=== PATIENT | female | born 1965 | race Caucasian/White ===

== ENCOUNTER → 2017-10-19 | Outpatient (REF) | payer OTHER ==
[2017-10-20 13:12] LABS: CHLAMYDIA DNA AMPLIFICATION NEGATIVE (NEGATIVE); GC DNA AMPLIFICATION NEGATIVE (NEGATIVE)
== END ==
LOC: M SFHCLERA 18:10
DX: N30.01 Acute cystitis with hematuria (principal)

== ENCOUNTER 2020-12-17 16:09 | Emergency (ER) | payer OTHER ==
[~2020-12-17] VITALS: Ht 172.7 cm; Wt 109.3 kg
[2020-12-17] MEDS ORDERED: AZIT500T5 (16:32)
[2020-12-17] MEDS ORDERED: PRED20TA (16:32)
[2020-12-17] MEDS ORDERED: ALBU8.5H (16:32)
[2020-12-17] MEDS ORDERED: BENZ-18 (16:32)
--- NOTE | 2020-12-17 19:09 | REP ---
INDICATION: cough, sob COMPARISON: 01/25/2013. TECHNIQUE: PA/Lateral FINDINGS: Lungs: Clear, no infiltrate. Heart: Normal in size. Mediastinum: Mediastinal silhouette unremarkable. Pleural angles: Unremarkable.. Bones and soft tissues: Unremarkable. IMPRESSION: No acute pulmonary disease. <Electronically signed by Frandy Foster > 12/17/20 2090
[2020-12-17 20:21] LABS: BLOOD UREA NITROGEN 13 MG/DL (7-18); CALCIUM LEVEL 9.6 MG/DL (8.5-10.1); CARBON DIOXIDE LEVEL 25 MEQ/L (21-32); CHLORIDE LEVEL 105 MEQ/L (98-107); CK-MB VALUE MASS 1.2 NG/ML (<3.6); CPK CREATINE PHOSPHOKINASE 127 U/L (26-192); CREATININE FOR GFR 0.82 MG/DL (0.55-1.30); GLOMERULAR FILTRATION RATE > 60.0 (>51); GLUCOSE, FASTING 107 MG/DL (70-100); MB/CK RELATIVE INDEX 0.94 (< OR =4); NT-PRO BNP 191 PG/ML (<125); POTASSIUM SERUM 3.8 MEQ/L (3.5-5.1); SODIUM LEVEL 141 MEQ/L (136-145); TROPONIN I < 0.02 NG/ML (< 0.10)
[2020-12-17 20:29] LABS: BASO % 0.2 % (0.0-1.0); EOS % 0.2 % (0.0-3.0); HEMATOCRIT 36.2 % (36.0-47.0); HEMOGLOBIN 11.6 g/dl (12.0-15.5); LYMPH # 2.4 10^3/uL (1.5-5.0); LYMPH % 19.3 % (24.0-44.0); MEAN CORPUSCULAR HEMOGLOBIN 24.3 pg (27.0-33.0); MEAN CORPUSCULAR VOLUME 75.9 fl (80.0-96.0); MONO # 0.9 10^3/uL (0.0-0.8); MONO % 6.8 % (2.0-8.0); NEUTROPHILS # 9.2 10^3/uL (1.5-8.5); NEUTROPHILS % 72.9 % (36.0-66.0); PLATELET COUNT, AUTOMATED 371 10^3/uL (150-450); RED BLOOD COUNT 4.77 10^6/uL (4.00-5.40); WHITE BLOOD COUNT 12.6 10^3/uL (4.0-10.0)
[2020-12-17 20:55] LABS: RSV AMPLIFICATION NEGATIVE (NEGATIVE)
[2020-12-17] MEDS ORDERED: DOXY1CAP62 PO (20:58)
[2020-12-17] MEDS ORDERED: DOXYCYCLINE HYCLATE 100MG TABLET PO ONE (21:10)
[2020-12-17 21:23] VITALS: BP 138/99
--- NOTE | 2020-12-18 05:36 | ECGEPIP ---
[facility] - ED Test Date: 2020-12-17 Pat Name: BARNEY MCLAIN Department: Room: - Gender: Female [employer]ainer: SB : [id number] Requested By: TIARA Houston PA-C Order Number: [id number] Reading MD: Talon Arauz Measurements Intervals [place] Rate: 65 P: 45 MO: 148 QRS: -10 QRSD: 98 T: 90 QT: 388 QTc: 403 Interpretive Statements Normal sinus rhythm Moderate voltage criteria for LVH, may be normal variant ( R in aVL , Adi product ) SIMILAR TO 07/30/14 Electronically Signed on 12-18-2020 5:35:56 EDT by Talon Arauz
== END 2020-12-17 21:25 | disposition home or self-care (01) ==
LOC: M ED 16:09
DX: J20.9 Acute bronchitis, unspecified (principal); F17.200 Nicotine dependence, unspecified, uncomplicated; I10 Essential (primary) hypertension; J45.909 Unspecified asthma, uncomplicated; Z88.7 Allergy status to serum and vaccine; Z98.84 Bariatric surgery status

== ENCOUNTER → 2022-03-18 | Outpatient (CLI) | payer OTHER ==
[~2022-03-18] MED LIST: ALBU8.5H; AZIT500T5; BENZ-18; DOXY-443 PO; PRED20TA
== END ==
LOC: M WHC 14:51
PROVIDERS: ATTEND Family Medicine
DX: Z12.31 Encounter for screening mammogram for malignant neoplasm of breast (principal)

== ENCOUNTER → 2023-01-31 | Outpatient (CLI) | payer OTHER ==
[2023-01-31 11:42] LABS: BASO # 0.1 10^3/uL (0.0-0.2); BASO % 0.7 % (0.0-1.0); EOS # 0.3 10^3/uL (0.0-0.5); EOS % 3.4 % (0.0-3.0); HEMATOCRIT 37.4 % (36.0-47.0); HEMOGLOBIN 11.7 g/dl (12.0-15.5); LYMPH % 23.2 % (24.0-44.0); MEAN CORPUSCULAR HEMOGLOBIN 25.6 pg (27.0-33.0); MEAN CORPUSCULAR HGB CONC 31.3 g/dl (32.0-36.5); MEAN CORPUSCULAR VOLUME 81.8 fl (80.0-96.0); MONO # 0.8 10^3/uL (0.0-0.8); NEUTROPHILS # 5.5 10^3/uL (1.5-8.5); NEUTROPHILS % 63.5 % (36.0-66.0); PLATELET COUNT, AUTOMATED 270 10^3/uL (150-450); RED BLOOD COUNT 4.57 10^6/uL (4.00-5.40); WHITE BLOOD COUNT 8.7 10^3/uL (4.0-10.0)
[2023-01-31 12:12] LABS: IRON (FE) 31 UG/DL (50-170)
[2023-01-31 12:13] LABS: PERCENT SATURATION 7.3 % (13.2-45.0); TOTAL IRON BINDING CAPACITY 425 UG/DL (250-425)
[2023-01-31 12:21] LABS: ALBUMIN 3.8 G/DL (3.2-5.2); ALKALINE PHOSPHATASE 168 U/L (46-116); ALT/SGPT 66 U/L (7.0-40); AST/SGOT 51 U/L (<34); BILIRUBIN,TOTAL 0.6 MG/DL (0.3-1.2); BLOOD UREA NITROGEN 8 MG/DL (9-23); CALCIUM LEVEL 9.1 MG/DL (8.5-10.1); CARBON DIOXIDE LEVEL 27 MMOL/L (20-31); CHLORIDE LEVEL 104 MMOL/L (98-107); CHOLESTEROL LEVEL 170 MG/DL (<200); CREATININE FOR GFR 0.66 MG/DL (0.55-1.30); FERRITIN 4.6 NG/ML (7.3-270.7); FREE T4 0.88 NG/DL (0.89-1.76); GLOMERULAR FILTRATION RATE > 60.0 (>51); GLUCOSE, FASTING 91 MG/DL (60-100); MAGNESIUM LEVEL 2.2 MG/DL (1.8-2.4); SODIUM LEVEL 141 MMOL/L (136-145); THYROID STIMULATING HORMONE 1.659 uIU/ML (0.55-4.78); TOTAL 25(OH) VITAMIN D 13.8 NG/ML (20.0-100.0); TOTAL PROTEIN 6.4 G/DL (5.7-8.2); TRIGLYCERIDES LEVEL 102 MG/DL (<150); VITAMIN B12 LEVEL 475 PG/ML (211-911)
[2023-01-31 12:43] LABS: CHOLESTEROL RISK RATIO 2.87 (<5); HDL CHOLESTEROL 59.1 MG/DL (>40); LDL CHOLESTEROL 90.5 MG/DL (<100); NON-HDL-C 110.9 MG/DL
[2023-01-31 12:44] LABS: HEMOGLOBIN A1c 5.3 % (4.0-6.0)
== END ==
LOC: M PLALAB 08:21
PROVIDERS: ATTEND Nurse Practitioner Adult Health
DX: E03.9 Hypothyroidism, unspecified (principal); I10 Essential (primary) hypertension; Z98.84 Bariatric surgery status

== ENCOUNTER 2023-02-20 07:58 | Outpatient (CLI) | payer OTHER ==
[~2023-02-20] VITALS: Ht 171.4 cm; Wt 110.0 kg
[2023-02-20 08:30] VITALS: BP 128/84; O2SAT 98
[2023-02-20] MEDS ORDERED: FERRIC CARBOXYMALTOSE INJ 750 MG in NS 250 ML (>50kg) IV ONE ×3 (08:50)
[2023-02-20 10:10] VITALS: BP 159/91; O2SAT 97
== END 2023-02-20 10:10 ==
LOC: M INFU 07:58
PROVIDERS: ATTEND Nurse Practitioner Adult Health
DX: D50.9 Iron deficiency anemia, unspecified (principal); Z88.7 Allergy status to serum and vaccine; Z88.3 Allergy status to other anti-infective agents
CPT/HCPCS: 96365; J1439

== ENCOUNTER 2023-02-27 08:05 | Outpatient (CLI) | payer OTHER ==
[~2023-02-27] VITALS: Ht 172.7 cm; Wt 108.2 kg
[2023-02-27 08:05] VITALS: BP 168/85; O2SAT 100
[2023-02-27] MEDS ORDERED: FERRIC CARBOXYMALTOSE INJ 750 MG in NS 250 ML (>50kg) IV ONE ×3 (08:25)
[2023-02-27 09:45] VITALS: BP 144/83; O2SAT 96
== END 2023-02-27 09:45 ==
LOC: M INFU 08:05
PROVIDERS: ATTEND Nurse Practitioner Adult Health
DX: D50.9 Iron deficiency anemia, unspecified (principal); Z91.048 Other nonmedicinal substance allergy status; Z88.7 Allergy status to serum and vaccine
CPT/HCPCS: 96365; J1439

== ENCOUNTER → 2023-04-20 | Outpatient (CLI) | payer OTHER | LOC: M WHC 07:44 | PROVIDERS: ATTEND Nurse Practitioner Adult Health | DX: D48.61 Neoplasm of uncertain behavior of right breast (principal); Z97.8 Presence of other specified devices | CPT/HCPCS: 76642; 77066; G0279 ==

== ENCOUNTER → 2023-05-15 | Outpatient (CLI) | payer OTHER ==
[2023-05-15 17:01] LABS: BASO # 0.1 10^3/uL (0.0-0.2); BASO % 0.7 % (0.0-1.0); EOS # 0.2 10^3/uL (0.0-0.5); EOS % 2.7 % (0.0-3.0); HEMATOCRIT 44.2 % (36.0-47.0); HEMOGLOBIN 15.2 g/dl (12.0-15.5); LYMPH # 2.9 10^3/uL (1.5-5.0); LYMPH % 33.8 % (24.0-44.0); MEAN CORPUSCULAR HEMOGLOBIN 31.3 pg (27.0-33.0); MEAN CORPUSCULAR HGB CONC 34.4 g/dl (32.0-36.5); MEAN CORPUSCULAR VOLUME 91.1 fl (80.0-96.0); MONO # 0.8 10^3/uL (0.0-0.8); MONO % 9.2 % (2.0-8.0); NEUTROPHILS # 4.5 10^3/uL (1.5-8.5); NEUTROPHILS % 53.5 % (36.0-66.0); PLATELET COUNT, AUTOMATED 260 10^3/uL (150-450); RED BLOOD COUNT 4.85 10^6/uL (4.00-5.40); WHITE BLOOD COUNT 8.5 10^3/uL (4.0-10.0)
[2023-05-15 17:12] LABS: THYROID STIMULATING HORMONE 1.562 uIU/ML (0.55-4.78)
[2023-05-15 17:13] LABS: FERRITIN 70.9 NG/ML (7.3-270.7)
[2023-05-15 17:14] LABS: TOTAL 25(OH) VITAMIN D 36.6 NG/ML (20.0-100.0)
[2023-05-15 17:15] LABS: FOLATE 16.11 NG/ML (>5.4); FREE T4 0.95 NG/DL (0.89-1.76)
== END ==
LOC: M PLALAB 13:44
PROVIDERS: ATTEND Nurse Practitioner Adult Health
DX: E03.9 Hypothyroidism, unspecified (principal); D50.9 Iron deficiency anemia, unspecified; E55.9 Vitamin D deficiency, unspecified

== ENCOUNTER → 2023-06-16 | Outpatient (CLI) | payer OTHER ==
[2023-06-16 12:47] LABS: LIPASE 28 U/L (12-53)
[2023-06-16 12:48] LABS: AMYLASE 38 U/L (30-118)
[2023-06-16 12:49] LABS: ALBUMIN 3.9 G/DL (3.2-5.2); ALKALINE PHOSPHATASE 149 U/L (46-116); ALT/SGPT 25 U/L (7.0-40); AST/SGOT 19 U/L (<34); BILIRUBIN,DIRECT 0.3 MG/DL (<0.4); BILIRUBIN,TOTAL 0.7 MG/DL (0.3-1.2); TOTAL PROTEIN 6.1 G/DL (5.7-8.2)
[2023-06-16 13:18] LABS: HEPATITIS C VIRUS ABY INDEX 0.03 INDEX (<0.8)
[2023-06-16 13:19] LABS: HEPATITIS B CORE ANTIBODY IGM NEGATIVE (NEGATIVE)
== END ==
LOC: M PLALAB 08:07
PROVIDERS: ATTEND Nurse Practitioner Adult Health
DX: R94.5 Abnormal results of liver function studies (principal)

== ENCOUNTER → 2023-07-11 | Outpatient (CLI) | payer OTHER ==
[~2023-07-11] MED LIST changes: +READI-CAT 2 ONE
== END ==
LOC: M PLAIMG 07:07
PROVIDERS: ATTEND Nurse Practitioner Adult Health
DX: R68.81 Early satiety (principal); D37.4 Neoplasm of uncertain behavior of colon

== ENCOUNTER → 2023-08-07 | Outpatient (CLI) | payer OTHER ==
[~2023-08-07] MED LIST changes: +DOXY-323 PO; -DOXY-443 PO; +ERGO500029 PO; +LOSA25TA13 PO; -READI-CAT 2 ONE; +THERTAB52 PO
== END ==
LOC: M PLARAD 14:42
PROVIDERS: ATTEND Internal Medicine Medical Oncology
DX: C18.7 Malignant neoplasm of sigmoid colon (principal)
CPT/HCPCS: 78815; A9552

== ENCOUNTER 2023-08-18 11:01 | Day surgery (SDC) | payer OTHER ==
[~2023-08-18] VITALS: Ht 172.7 cm; Wt 103.9 kg
[~2023-08-18 11:01] MED LIST changes: +NS 1,000 ML IV ONE
[2023-08-18] MEDS ORDERED: propofoL 200 MG/20 ML VIAL As Ordered ONE (13:19)
[2023-08-18] MEDS ORDERED: LIDOCAINE 2% 100MG/5ML SDV (FOR ANES.) As Ordered ONE (13:19)
[2023-08-18 13:24] VITALS: TEMP 97
[2023-08-18 13:46] VITALS: BP 123/65; O2SAT 98
== END 2023-08-18 13:48 | disposition home or self-care (01) ==
LOC: M OPP 11:01
PROVIDERS: ATTEND Surgery
DX: C18.7 Malignant neoplasm of sigmoid colon (principal); K56.691 Other complete intestinal obstruction; I10 Essential (primary) hypertension; Z85.828 Personal history of other malignant neoplasm of skin; Z79.899 Other long term (current) drug therapy; Z90.49 Acquired absence of other specified parts of digestive tract; Z87.891 Personal history of nicotine dependence; Z88.7 Allergy status to serum and vaccine; Z98.84 Bariatric surgery status

== ENCOUNTER 2023-08-31 07:30 | Inpatient (IN) | payer OTHER ==
[~2023-08-31] VITALS: Ht 172.7 cm; Wt 104.3 kg
[2023-08-31] VITALS (8 sets, daily range): BP systolic 107–128; BP diastolic 58–79; TEMP 97–97.9; O2SAT 94–97
[2023-08-31] MEDS: LR 1,000 ML IV SCH (07:20)
[~2023-08-31 07:30] MED LIST changes: +LIDOCAINE 2% 100MG/5ML SDV (FOR ANES.) As Ordered ONE; +MIDAZOLAM INJ 2MG/2ML VIAL As Ordered ONE; -NS 1,000 ML IV ONE; +ONDANSETRON 4MG 2ML VIAL As Ordered ONE; +ROCURONIUM BROMIDE 50MG/5ML VIAL As Ordered ONE; +SUGAMMADEX SODIUM 500 MG/5 ML VIAL (BRIDION) As Ordered ONE; +fentaNYL 250 MCG/5 ML INJECTION As Ordered ONE; +propofoL 200 MG/20 ML VIAL As Ordered ONE
[2023-08-31] MEDS: ceFAZolin SOD 2 GM in IV 1 EA IV ONE (07:42)
[2023-08-31] MEDS ORDERED: PHENYLephrine 500MCG 5ML (100MCG/ML) SYRINGE As Ordered ONE (07:44)
[2023-08-31] MEDS: metroNIDAZOLE 500 MG in IV 1 EA IV ONE (07:48)
[2023-08-31] MEDS ORDERED: ACETAMINOPHEN 1000MG 100ML IV BAG As Ordered ONE (07:55)
[2023-08-31] MEDS ORDERED: dexmedeTOMIDine (4MCG/ML)200MCG/50ML BTL (PRECEDEX) As Ordered ONE (08:20)
[2023-08-31] MEDS ORDERED: HYDROmorphone HCL 2MG/ML 1ML VIAL As Ordered ONE (09:23)
[2023-08-31] MEDS ORDERED: oxyCODONE 5MG TAB PO PRN (10:40)
[2023-08-31] MEDS ORDERED: ONDANSETRON 4MG 2ML VIAL IV PRN ×2 (10:40→12:15)
[2023-08-31] MEDS ORDERED: fentaNYL 100 MCG/2 ML INJECTION IV PRN (10:40)
[2023-08-31] MEDS: NS 1,000 ML IV SCH (11:31)
[2023-08-31] MEDS: HYDROMORPHONE HCL 0.5 MG/ 0.5 ML SYRINGE IV PRN (11:31)
[2023-08-31] MEDS ORDERED: NORCO, ANEXSIA 5/325MG TABLET (HYDROcodone/ACETAMINOPHEN) PO PRN (12:15)
[2023-08-31] MEDS ORDERED: MORPHINE 2 MG/ML 1ML VIAL IV PRN (12:15)
[2023-08-31] MEDS: PIPERACILLIN/TAZOBACTAM SOD 3.375 GM in D5W MINI-BAG PLUS 50 ML IV SCH (13:40)
[2023-08-31] MEDS: NORCO, ANEXSIA 5/325MG TABLET (HYDROcodone/ACETAMINOPHEN) PO PRN (14:15)
[2023-08-31] MEDS: KETOROLAC 30 MG/ML 1ML VIAL IV PRN (17:01)
[2023-08-31] MEDS: SENOKOT S TAB PO SCH (19:59)
[2023-09-01 01:00] VITALS: BP 127/72; TEMP 97.2; O2SAT 96
[2023-09-01 05:00] VITALS: BP 125/71; TEMP 97; O2SAT 94
[2023-09-01 07:29] LABS: HEMATOCRIT 37.2 % (36.0-47.0); HEMOGLOBIN 12.8 g/dl (12.0-15.5); MEAN CORPUSCULAR HEMOGLOBIN 33.3 pg (27.0-33.0); MEAN CORPUSCULAR HGB CONC 34.4 g/dl (32.0-36.5); MEAN CORPUSCULAR VOLUME 96.9 fl (80.0-96.0); PLATELET COUNT, AUTOMATED 184 10^3/uL (150-450); RED BLOOD COUNT 3.84 10^6/uL (4.00-5.40); WHITE BLOOD COUNT 10.1 10^3/uL (4.0-10.0)
[2023-09-01 07:56] LABS: BLOOD UREA NITROGEN 10 MG/DL (9-23); CALCIUM LEVEL 8.5 MG/DL (8.5-10.1); CARBON DIOXIDE LEVEL 28 MMOL/L (20-31); CHLORIDE LEVEL 108 MMOL/L (98-107); CREATININE FOR GFR 0.65 MG/DL (0.55-1.30); GLOMERULAR FILTRATION RATE > 60.0 (>51); GLUCOSE, FASTING 89 MG/DL (60-100); POTASSIUM SERUM 4.1 MMOL/L (3.5-5.1); SODIUM LEVEL 142 MMOL/L (136-145)
[2023-09-01 09:03] VITALS: BP 131/79; TEMP 97.3; O2SAT 97
[2023-09-01] MEDS: LOSARTAN 25 MG TAB PO SCH (09:05)
[2023-09-01] MEDS: ENOXAPARIN 40MG/0.4ML SYRINGE (J1650 PER 10MG) SC SCH (09:07)
[2023-09-01 14:00] VITALS: BP 131/80; TEMP 97.7; O2SAT 97
[2023-09-01 21:18] VITALS: BP 139/81; TEMP 97.7; O2SAT 97
[2023-09-02 05:28] VITALS: BP 149/93; TEMP 97; O2SAT 94
[2023-09-02 06:46] LABS: HEMOGLOBIN 12.9 g/dl (12.0-15.5); MEAN CORPUSCULAR HEMOGLOBIN 33.6 pg (27.0-33.0); MEAN CORPUSCULAR HGB CONC 34.9 g/dl (32.0-36.5); MEAN CORPUSCULAR VOLUME 96.4 fl (80.0-96.0); PLATELET COUNT, AUTOMATED 168 10^3/uL (150-450); RED BLOOD COUNT 3.84 10^6/uL (4.00-5.40); WHITE BLOOD COUNT 8.9 10^3/uL (4.0-10.0)
[2023-09-02 07:05] LABS: BLOOD UREA NITROGEN 5 MG/DL (9-23); CALCIUM LEVEL 8.7 MG/DL (8.5-10.1); CARBON DIOXIDE LEVEL 29 MMOL/L (20-31); CHLORIDE LEVEL 110 MMOL/L (98-107); CREATININE FOR GFR 0.57 MG/DL (0.55-1.30); GLOMERULAR FILTRATION RATE > 60.0 (>51); GLUCOSE, FASTING 96 MG/DL (60-100); POTASSIUM SERUM 3.4 MMOL/L (3.5-5.1); SODIUM LEVEL 143 MMOL/L (136-145)
[2023-09-02 08:34] VITALS: BP 139/91
[2023-09-02] MEDS ORDERED: TRAM50TA2 PO (12:16)
== END 2023-09-02 13:00 | disposition home or self-care (01) | DRG 330 ==
LOC: M MS5PR 10:53
PROVIDERS: ADMIT Surgery; ATTEND Surgery
PROC: 8E0W4CZ Robotic Assisted Procedure of Trunk Region, Percutaneous Endoscopic Approach (ICD-10-PCS; 2023-08-31)
PROC: 0DTN4ZZ Resection of Sigmoid Colon, Percutaneous Endoscopic Approach (ICD-10-PCS; principal; 2023-08-31 07:30)
DX: C18.7 Malignant neoplasm of sigmoid colon (principal); C77.2 Secondary and unspecified malignant neoplasm of intra-abdominal lymph nodes; Z88.7 Allergy status to serum and vaccine; Z88.8 Allergy status to other drugs, medicaments and biological substances

== ENCOUNTER → 2023-09-27 | Outpatient (CLI) | payer OTHER ==
[~2023-09-27] VITALS: Ht 172.7 cm; Wt 105.0 kg
[~2023-09-27] MED LIST changes: +LIDOCAINE 1% MDV 20ML VIAL As Ordered ONE; -LIDOCAINE 2% 100MG/5ML SDV (FOR ANES.) As Ordered ONE; +LIDOCAINE W/EPINEPHRINE 1% 20ML VIAL As Ordered ONE; -ONDANSETRON 4MG 2ML VIAL As Ordered ONE; -ROCURONIUM BROMIDE 50MG/5ML VIAL As Ordered ONE; -SUGAMMADEX SODIUM 500 MG/5 ML VIAL (BRIDION) As Ordered ONE; +TRAM50TA2 PO; +ceFAZolin 2 GM/D5W 50 ML IV BAG As Ordered ONE; +ceFAZolin SOD 2 GM in IV 1 EA IV ONE; +fentaNYL 100 MCG/2 ML INJECTION As Ordered ONE; -fentaNYL 250 MCG/5 ML INJECTION As Ordered ONE; -propofoL 200 MG/20 ML VIAL As Ordered ONE
[2023-09-27 07:25] VITALS: TEMP 96.8
[2023-09-27 09:43] VITALS: BP 163/94; O2SAT 95
== END ==
LOC: M IRPRO 06:48
PROVIDERS: ATTEND Specialist
DX: C18.9 Malignant neoplasm of colon, unspecified (principal)
CPT/HCPCS: 36561; 99152; 99153; C1769; J0690; J2250; J3010

== ENCOUNTER → 2023-10-10 | Outpatient (CLI) | payer OTHER ==
[~2023-10-10] MED LIST changes: -LIDOCAINE 1% MDV 20ML VIAL As Ordered ONE; -LIDOCAINE W/EPINEPHRINE 1% 20ML VIAL As Ordered ONE; -MIDAZOLAM INJ 2MG/2ML VIAL As Ordered ONE; -ceFAZolin 2 GM/D5W 50 ML IV BAG As Ordered ONE; -ceFAZolin SOD 2 GM in IV 1 EA IV ONE; -fentaNYL 100 MCG/2 ML INJECTION As Ordered ONE
== END ==
LOC: EEVIPCON 09-13 10:00 → M RAD 08:48
PROVIDERS: ATTEND Specialist
DX: C18.9 Malignant neoplasm of colon, unspecified (principal)
CPT/HCPCS: 78306; A9503

== ENCOUNTER → 2023-11-13 | Outpatient (CLI) | payer OTHER ==
[~2023-11-13] MED LIST changes: +LIDO30CR18 TOP; +ONDA-84 PO; +PRED50TA PO; +PROC10TA5 PO
== END ==
LOC: M WHC 12:30
PROVIDERS: ATTEND Nurse Practitioner Adult Health
DX: N64.89 Other specified disorders of breast (principal); N63.22 Unspecified lump in the left breast, upper inner quadrant

== ENCOUNTER → 2023-12-05 | Outpatient (REF) | payer OTHER ==
[~2023-12-05] MED LIST changes: +AZIT-12 PO; +BENZ200C70 PO; +DIPH-435 PO; +POTA-151 PO; +PRED20TA PO; +RIZA10TA58 PO
[2023-12-05 15:32] LABS: IRON (FE) 116 UG/DL (50-170); PERCENT SATURATION 34.3 % (13.2-45.0); TOTAL IRON BINDING CAPACITY 338 UG/DL (250-425)
[2023-12-05 15:37] LABS: FREE T4 1.21 NG/DL (0.89-1.76)
[2023-12-05 15:38] LABS: THYROID STIMULATING HORMONE 2.248 uIU/ML (0.55-4.78)
[2023-12-05 15:39] LABS: FOLATE > 24.0 NG/ML (>5.4)
[2023-12-05 15:41] LABS: VITAMIN B12 LEVEL 1767 PG/ML (211-911)
== END ==
LOC: M LAB REF 14:47
PROVIDERS: ATTEND Nurse Practitioner Adult Health
DX: E55.9 Vitamin D deficiency, unspecified (principal); E03.9 Hypothyroidism, unspecified; D50.9 Iron deficiency anemia, unspecified; Z98.84 Bariatric surgery status

== ENCOUNTER → 2023-12-28 | Outpatient (CLI) | payer OTHER ==
[~2023-12-28] MED LIST changes: +ISOVUE-370 76% 100ML VIAL As Ordered ONE
== END ==
LOC: M RAD 07:28
PROVIDERS: ATTEND Internal Medicine Hematology & Oncology
DX: C18.9 Malignant neoplasm of colon, unspecified (principal)
CPT/HCPCS: 71260; Q9967

== ENCOUNTER → 2024-02-12 | Outpatient (REF) | payer OTHER ==
[~2024-02-12] MED LIST changes: -DOXY-323 PO; +DOXY-441 PO; +DOXY100C3 PO; -ISOVUE-370 76% 100ML VIAL As Ordered ONE
== END ==
LOC: M LAB REF 14:44
PROVIDERS: ATTEND Nurse Practitioner Adult Health
DX: E55.9 Vitamin D deficiency, unspecified (principal)

== ENCOUNTER → 2024-04-16 | Outpatient (CLI) | payer OTHER ==
[~2024-04-16] MED LIST changes: +ISOVUE-370 76% 100ML VIAL As Ordered ONE
== END ==
LOC: M RAD 15:05
PROVIDERS: ATTEND Specialist
DX: C18.9 Malignant neoplasm of colon, unspecified (principal)
CPT/HCPCS: 71260; 74177; Q9967

== ENCOUNTER → 2024-05-06 | Outpatient (CLI) | payer OTHER ==
[~2024-05-06] MED LIST changes: -ISOVUE-370 76% 100ML VIAL As Ordered ONE
== END ==
LOC: M PLARAD 08:11
PROVIDERS: ATTEND Nurse Practitioner Women's Health
DX: C18.7 Malignant neoplasm of sigmoid colon (principal)
CPT/HCPCS: 78815; A9552

== ENCOUNTER → 2024-05-15 | Outpatient (CLI) | payer OTHER ==
[~2024-05-15] MED LIST changes: +SOTO320T PO
== END ==
LOC: M WHC 08:16
PROVIDERS: ATTEND Nurse Practitioner Adult Health
DX: Z12.31 Encounter for screening mammogram for malignant neoplasm of breast (principal)
CPT/HCPCS: 77066; G0279

== ENCOUNTER → 2024-05-29 | Outpatient (CLI) | payer OTHER ==
[~2024-05-29] MED LIST changes: +SOTO120T PO
== END ==
LOC: M CARPUL 12:58
PROVIDERS: ATTEND Internal Medicine Medical Oncology
DX: C18.9 Malignant neoplasm of colon, unspecified (principal)

== ENCOUNTER 2024-08-16 08:48 | Day surgery (SDC) | payer OTHER ==
[~2024-08-16] VITALS: Ht 172.7 cm; Wt 100.0 kg
[~2024-08-16 08:48] MED LIST changes: +CEFD1CAP9 PO; +CLIN1GEL3 TOP; +MINO100C4 PO; -PRED50TA PO; +PRED50TA57 PO; +TRIA1CR80 TOP
[2024-08-16] MEDS ORDERED: propofoL 200 MG/20 ML VIAL As Ordered ONE (09:37)
[2024-08-16 09:55] VITALS: TEMP 96.9
[2024-08-16 10:11] VITALS: BP 111/70; O2SAT 98
== END 2024-08-16 10:30 | disposition home or self-care (01) ==
LOC: M OPP 08:48
PROVIDERS: ATTEND Surgery
DX: D12.6 Benign neoplasm of colon, unspecified (principal); K92.2 Gastrointestinal hemorrhage, unspecified; K63.89 Other specified diseases of intestine; Z85.038 Personal history of other malignant neoplasm of large intestine; Z98.0 Intestinal bypass and anastomosis status; Z88.7 Allergy status to serum and vaccine; Z91.041 Radiographic dye allergy status; Z91.048 Other nonmedicinal substance allergy status; Z79.899 Other long term (current) drug therapy; Z98.84 Bariatric surgery status

== ENCOUNTER → 2024-08-19 | Outpatient (CLI) | payer OTHER | LOC: M RAD 12:29 | PROVIDERS: ATTEND Nurse Practitioner Adult Health | DX: R91.8 Other nonspecific abnormal finding of lung field (principal); R05.1 Acute cough ==

== ENCOUNTER → 2024-08-19 | Outpatient (REF) | payer OTHER | LOC: M LAB REF 12:10 | PROVIDERS: ATTEND Nurse Practitioner Adult Health | DX: R09.89 Other specified symptoms and signs involving the circulatory and respiratory systems (principal) ==

== ENCOUNTER → 2024-10-08 | Outpatient (CLI) | payer OTHER ==
[~2024-10-08] MED LIST changes: +CALC500C14 PO; +MAGN400T33 PO; +POTA99CA2 PO
== END ==
LOC: M PLARAD 14:02
PROVIDERS: ATTEND Specialist
DX: C18.9 Malignant neoplasm of colon, unspecified (principal)
CPT/HCPCS: 78815; A9552

== ENCOUNTER 2024-10-14 14:16 | Inpatient (IN) | payer OTHER ==
[~2024-10-14] VITALS: Ht 172.7 cm; Wt 97.2 kg
[~2024-10-14 14:16] MED LIST changes: -CALC500C14 PO; -MAGN400T33 PO; -POTA99CA2 PO
[2024-10-14] MEDS ORDERED: POTA99CA2 PO (16:03)
[2024-10-14] MEDS ORDERED: HOME MED LIST COMPLETE! XX SCH (16:05)
[2024-10-14 17:13] LABS: BASO # 0.0 10^3/uL (0.0-0.2); BASO % 0.4 % (0.0-1.0); EOS # 0.2 10^3/uL (0.0-0.5); EOS % 2.7 % (0.0-3.0); LYMPH # 1.6 10^3/uL (1.5-5.0); LYMPH % 21.1 % (24.0-44.0); MONO # 0.7 10^3/uL (0.0-0.8); MONO % 8.8 % (2.0-8.0); NEUTROPHILS # 5.2 10^3/uL (1.5-8.5); NEUTROPHILS % 66.7 % (36.0-66.0); PLATELET COUNT, AUTOMATED 240 10^3/uL (150-450)
[2024-10-14 17:48] LABS: CALCIUM LEVEL 6.9 MG/DL (8.3-10.6); CARBON DIOXIDE LEVEL 28 MMOL/L (20-31); CHLORIDE LEVEL 105 MMOL/L (98-107); CREATININE FOR GFR 0.54 MG/DL (0.55-1.30); GLOMERULAR FILTRATION RATE > 90.0 (>45); MAGNESIUM LEVEL 0.6 MG/DL (1.8-2.4); PHOSPHORUS LEVEL 3.8 MG/DL (2.4-5.1); POTASSIUM SERUM 3.9 MMOL/L (3.5-5.1); SODIUM LEVEL 146 MMOL/L (136-145)
[2024-10-14] MEDS: MAG SULF 1GM/100ML (MAG RUN) 1 GM in IV 1 EA IV ONE (17:50)
[2024-10-14] MEDS: CALCIUM GLUCONATE 1,000 MG in DEXTROSE 5% (D5W) MINI-BAG PLU 100 ML IV ONE (18:26)
[2024-10-14 19:05] LABS: ALT/SGPT 12 U/L (7.0-40); AST/SGOT 20 U/L (<34)
[2024-10-14] MEDS: MAG SULF 1GM/100ML (MAG RUN) 1 GM in IV 1 EA IV SCH (23:03)
[2024-10-14 23:48] LABS: IONIZED CALCIUM 3.8 MG/DL (4.5-5.3)
[2024-10-15 00:25] LABS: CALCIUM LEVEL 7.1 MG/DL (8.3-10.6); CARBON DIOXIDE LEVEL 29 MMOL/L (20-31); CHLORIDE LEVEL 105 MMOL/L (98-107); CREATININE FOR GFR 0.50 MG/DL (0.55-1.30); GLOMERULAR FILTRATION RATE > 90.0 (>45); MAGNESIUM LEVEL 1.2 MG/DL (1.8-2.4); POTASSIUM SERUM 3.7 MMOL/L (3.5-5.1); SODIUM LEVEL 146 MMOL/L (136-145)
[2024-10-15] MEDS: UNRESOLVED CLARIFICATION ENTRY XX STA (01:45)
[2024-10-15 06:24] LABS: BASO # 0.0 10^3/uL (0.0-0.2); BASO % 0.4 % (0.0-1.0); EOS # 0.2 10^3/uL (0.0-0.5); EOS % 3.3 % (0.0-3.0); LYMPH # 1.2 10^3/uL (1.5-5.0); LYMPH % 16.2 % (24.0-44.0); MONO # 0.6 10^3/uL (0.0-0.8); MONO % 8.6 % (2.0-8.0); NEUTROPHILS # 5.1 10^3/uL (1.5-8.5); NEUTROPHILS % 71.1 % (36.0-66.0); PLATELET COUNT, AUTOMATED 215 10^3/uL (150-450)
[2024-10-15 07:08] LABS: CALCIUM LEVEL 7.0 MG/DL (8.3-10.6); CARBON DIOXIDE LEVEL 29 MMOL/L (20-31); CHLORIDE LEVEL 105 MMOL/L (98-107); CREATININE FOR GFR 0.51 MG/DL (0.55-1.30); GLOMERULAR FILTRATION RATE > 90.0 (>45); POTASSIUM SERUM 3.7 MMOL/L (3.5-5.1); SODIUM LEVEL 146 MMOL/L (136-145)
[2024-10-15 07:34] LABS: MAGNESIUM LEVEL 1.1 MG/DL (1.8-2.4)
[2024-10-15] MEDS: ENOXAPARIN 40 MG/0.4 ML SYRINGE (J1650 PER 10MG) SC SCH (08:54)
[2024-10-15] MEDS: CALCIUM GLUCONATE 1,000 MG in DEXTROSE 5% (D5W) MINI-BAG PLU 100 ML IV ONE ×2 (08:54→17:55)
[2024-10-15] MEDS: MAGNESIUM OXIDE 400 MG TAB PO SCH (08:55)
[2024-10-15] MEDS: MAG SULF 1GM/100ML (MAG RUN) 1 GM in IV 1 EA IV SCH (12:09)
[2024-10-15 12:18] VITALS: TEMP 97.8
[2024-10-15 15:51] LABS: IONIZED CALCIUM 4.3 MG/DL (4.5-5.3)
[2024-10-15 16:27] LABS: MAGNESIUM LEVEL 1.4 MG/DL (1.8-2.4)
[2024-10-15 20:00] VITALS: BP 139/90
[2024-10-15] MEDS: MAG SULF 1GM/100ML (MAG RUN) 1 GM in IV 1 EA IV ONE (20:26)
[2024-10-15] MEDS ORDERED: MAGN400T33 PO (20:48)
[2024-10-15] MEDS ORDERED: CALC500C14 PO (20:48)
[2024-10-15 22:30] VITALS: O2SAT 98
== END 2024-10-15 23:24 | disposition home or self-care (01) | DRG 641 ==
LOC: M ED 14:16 → M ED INP 18:25 → M PCU 10-15 22:29
PROVIDERS: ADMIT Internal Medicine Nephrology; ATTEND Internal Medicine Nephrology
DX: E83.42 Hypomagnesemia (principal); C18.9 Malignant neoplasm of colon, unspecified; C79.51 Secondary malignant neoplasm of bone; C78.00 Secondary malignant neoplasm of unspecified lung; E03.9 Hypothyroidism, unspecified; I10 Essential (primary) hypertension; E28.2 Polycystic ovarian syndrome; G43.909 Migraine, unspecified, not intractable, without status migrainosus; E83.51 Hypocalcemia; J30.9 Allergic rhinitis, unspecified; D50.9 Iron deficiency anemia, unspecified; Z92.25 Personal history of immunosuppression therapy; Z88.7 Allergy status to serum and vaccine; Z88.8 Allergy status to other drugs, medicaments and biological substances; Z79.899 Other long term (current) drug therapy; M15.8 Other polyosteoarthritis; Z85.828 Personal history of other malignant neoplasm of skin

== ENCOUNTER 2024-11-04 05:42 | Observation (INO) | payer OTHER ==
[~2024-11-04] VITALS: Ht 172.7 cm; Wt 97.5 kg
[~2024-11-04 05:42] MED LIST changes: +CALC500C14 PO; +MAGN400T33 PO; +POTA99CA2 PO
[2024-11-04 07:03] LABS: BASO # 0.1 10^3/uL (0.0-0.2); BASO % 0.5 % (0.0-1.0); EOS # 0.2 10^3/uL (0.0-0.5); EOS % 1.6 % (0.0-3.0); LYMPH # 1.0 10^3/uL (1.5-5.0); LYMPH % 9.5 % (24.0-44.0); MONO # 1.0 10^3/uL (0.0-0.8); MONO % 9.7 % (2.0-8.0); NEUTROPHILS # 8.4 10^3/uL (1.5-8.5); NEUTROPHILS % 78.2 % (36.0-66.0); PLATELET COUNT, AUTOMATED 381 10^3/uL (150-450)
[2024-11-04] MEDS: NS (Normal Saline) 0.9% 1,000 ML IV ONE (07:10)
[2024-11-04 07:30] LABS: CALCIUM LEVEL 7.9 MG/DL (8.3-10.6); CARBON DIOXIDE LEVEL 24 MMOL/L (20-31); CHLORIDE LEVEL 102 MMOL/L (98-107); CREATININE FOR GFR 0.47 MG/DL (0.55-1.30); GLOMERULAR FILTRATION RATE > 90.0 (>45); MAGNESIUM LEVEL 0.6 MG/DL (1.8-2.4); POTASSIUM SERUM 4.2 MMOL/L (3.5-5.1); SODIUM LEVEL 142 MMOL/L (136-145)
[2024-11-04] MEDS: MAG SULF 1GM/100ML (MAG RUN) 1 GM in IV 1 EA IV ONE ×2 (08:31→09:24)
[2024-11-04] MEDS ORDERED: RIZA10TA58 PO (09:02)
[2024-11-04] MEDS ORDERED: SERT50TA29 PO (09:02)
[2024-11-04] MEDS ORDERED: LIDO30CR18 TOP (09:02)
[2024-11-04] MEDS ORDERED: CALC500C16 PO (09:02)
[2024-11-04] MEDS ORDERED: MAGN400T2 PO (09:02)
[2024-11-04] MEDS ORDERED: HOME MED LIST COMPLETE! XX SCH (09:05)
[2024-11-04] MEDS: MAG SULF 1GM/100ML (MAG RUN) 1 GM in IV 1 EA IV SCH ×2 (10:37→17:09)
[2024-11-04] MEDS: CALCITRIOL 0.25 MCG CAP (S0169) PO SCH (10:37)
[2024-11-04] MEDS: CALCIUM CARBONATE 500 MG CHEW U/D PO SCH (10:37)
[2024-11-04] MEDS ORDERED: PILL CUTTER 1 EACH XX ONE (14:13)
[2024-11-04] MEDS: MAGNESIUM GLUCONATE 500 MG TAB PO SCH (14:16)
[2024-11-04] MEDS ORDERED: PILL CUTTER 1 EACH XX PRN (17:00)
[2024-11-04 17:17] VITALS: BP 159/96; TEMP 97.2; O2SAT 97
[2024-11-04 20:15] VITALS: BP 154/94; TEMP 97.4; O2SAT 98
[2024-11-05 00:44] VITALS: BP 137/82; TEMP 97; O2SAT 99
[2024-11-05 03:29] VITALS: BP 119/74; TEMP 97.1; O2SAT 98
[2024-11-05 04:00] VITALS: BP 119/74; TEMP 97.1; O2SAT 98
[2024-11-05 05:53] LABS: BASO # 0.0 10^3/uL (0.0-0.2); BASO % 0.3 % (0.0-1.0); EOS # 0.2 10^3/uL (0.0-0.5); EOS % 2.5 % (0.0-3.0); LYMPH # 1.3 10^3/uL (1.5-5.0); LYMPH % 13.5 % (24.0-44.0); MONO # 1.1 10^3/uL (0.0-0.8); MONO % 11.9 % (2.0-8.0); NEUTROPHILS # 6.7 10^3/uL (1.5-8.5); NEUTROPHILS % 71.4 % (36.0-66.0); PLATELET COUNT, AUTOMATED 397 10^3/uL (150-450)
[2024-11-05 06:17] LABS: CALCIUM LEVEL 8.4 MG/DL (8.3-10.6); CARBON DIOXIDE LEVEL 26 MMOL/L (20-31); CHLORIDE LEVEL 103 MMOL/L (98-107); CREATININE FOR GFR 0.43 MG/DL (0.55-1.30); GLOMERULAR FILTRATION RATE > 90.0 (>45); MAGNESIUM LEVEL 1.2 MG/DL (1.8-2.4); POTASSIUM SERUM 4.1 MMOL/L (3.5-5.1); SODIUM LEVEL 142 MMOL/L (136-145)
[2024-11-05] MEDS ORDERED: LIDOCAINE/PRILOCAINE CREAM 5 GM TUBE TOP PRN (07:20)
[2024-11-05] MEDS ORDERED: RIZATRIPTAN MLT 10 MG TAB PO PRN (07:20)
[2024-11-05 07:55] LABS: ALT/SGPT < 9 U/L (7.0-40); AST/SGOT 14 U/L (<34)
[2024-11-05] MEDS: MAG SULF 1GM/100ML (MAG RUN) 1 GM in IV 1 EA IV SCH ×2 (07:55→14:04)
[2024-11-05 08:11] VITALS: BP 149/90; TEMP 97.8; O2SAT 96
[2024-11-05] MEDS: ENOXAPARIN 40 MG/0.4 ML SYRINGE (J1650 PER 10MG) SC SCH (09:42)
[2024-11-05 09:43] VITALS: BP 149/90
[2024-11-05] MEDS: SERTRALINE HCL 50 MG TAB PO SCH (09:44)
[2024-11-05] MEDS: MULTIVITAMINS/MINERALS THERAP 1 TAB PO SCH (09:44)
[2024-11-05] MEDS: ACETAMINOPHEN 325 MG TAB PO PRN (11:43)
[2024-11-05 12:00] VITALS: BP 122/84; TEMP 97.2; O2SAT 98
[2024-11-05] MEDS ORDERED: AMIL5TAB4 PO (13:54)
[2024-11-05] MEDS ORDERED: MAGN50TA PO (13:54)
[2024-11-05] MEDS ORDERED: CALC1CAP31 PO (13:54)
[2024-11-12] MEDS ORDERED: DULO30CA9 PO (12:28)
[2024-11-12] MEDS ORDERED: TRAZ-252 PO (12:28)
[2024-11-19] MEDS ORDERED: ONDA-284 PO (10:40)
[2024-12-03] MEDS ORDERED: TRAZ-252 PO (12:52)
[2024-12-03] MEDS ORDERED: DULO30CA9 PO (12:52)
== END 2024-11-05 16:43 | disposition home or self-care (01) ==
LOC: M ED 05:42 → M ED INP 05:43 → M PCU 16:52
PROVIDERS: ADMIT Internal Medicine Nephrology; ATTEND Internal Medicine Nephrology
DX: E83.42 Hypomagnesemia (principal); T45.AX5A Adverse effect of immune checkpoint inhibitors and immunostimulant drugs, initial encounter; E88.A Wasting disease (syndrome) due to underlying condition; C18.9 Malignant neoplasm of colon, unspecified; C79.51 Secondary malignant neoplasm of bone; C78.00 Secondary malignant neoplasm of unspecified lung; E87.8 Other disorders of electrolyte and fluid balance, not elsewhere classified; E83.51 Hypocalcemia; R53.81 Other malaise; R53.1 Weakness; R63.0 Anorexia; Z79.899 Other long term (current) drug therapy
CPT/HCPCS: 36415; 70450; 80048; 80076; 82330; 83735; 85025; 93005; 93041; 96361; 96372; 96374; 99285; J1650; J3475

== ENCOUNTER → 2024-11-12 | Outpatient (CLI) | payer OTHER ==
[~2024-11-12] VITALS: Ht 172.7 cm; Wt 98.2 kg
[~2024-11-12] MED LIST changes: +AMIL5TAB4 PO; +CALC1CAP31 PO; +CALC500C16 PO; +DULO30CA9 PO; +MAGN400T2 PO; +MAGN50TA PO; +SERT50TA29 PO; +TRAZ-252 PO
[2024-11-12 11:48] VITALS: BP 110/74; O2SAT 99
== END ==
LOC: M PAL 11:29
PROVIDERS: ATTEND Physician Assistant
DX: Z51.5 Encounter for palliative care (principal); C18.9 Malignant neoplasm of colon, unspecified; C78.00 Secondary malignant neoplasm of unspecified lung; C78.6 Secondary malignant neoplasm of retroperitoneum and peritoneum; Z79.891 Long term (current) use of opiate analgesic; Z88.0 Allergy status to penicillin; Z91.041 Radiographic dye allergy status; Z88.8 Allergy status to other drugs, medicaments and biological substances; Z79.899 Other long term (current) drug therapy

== ENCOUNTER → 2024-11-19 | Outpatient (CLI) | payer OTHER ==
[~2024-11-19] MED LIST changes: +ONDA-284 PO
== END ==
LOC: M ONCM 07:07
PROVIDERS: ATTEND Dietitian, Registered
DX: C18.9 Malignant neoplasm of colon, unspecified (principal); C78.00 Secondary malignant neoplasm of unspecified lung; Z71.3 Dietary counseling and surveillance; Z68.32 Body mass index [BMI] 32.0-32.9, adult